=== PATIENT | male | born 1995 | race African-American/Black ===

== ENCOUNTER 2018-08-04 16:22 | Emergency (ER) | payer OTHER ==
--- NOTE | 2018-08-04 17:28 | ED Physician Chart ---
ED Chief Complaint/HPI - Patient Information Date Seen:: 08/04/18 Time Seen:: 16:50 Chief Complaint:: Chest Pain History of Present Illness:: onset x 3 days of intermittent, sharp, MS Type C/P, pt denies trauma, LOC, ALOC , AMS, H/As, neck pain, cough, dyspnea, abd. pain, A/N/V/D/C, fever, chills, or urinary s/s Allergies:: Allergies Allergy/AdvReac Type Severity Reaction Status Date / Time No Known Allergies Allergy Verified 08/04/18 17:21 Vitals:: Vital Signs - 8 hr 08/04/18 16:51 Temp 98 F HR 79 RR 18 BP 125/74 O2 Sat % 98 Historian:: Patient Review:: Nurse's Note Reviewed, Old Chart Reviewed <Julio Cesar Weldon - Last Filed: 08/04/18 19:01> - Patient Information Allergies:: Allergies Allergy/AdvReac Type Severity Reaction Status Date / Time No Known Allergies Allergy Verified 08/04/18 17:21 Vitals:: Vital Signs - 8 hr 08/04/18 08/04/18 16:51 17:28 Temp 98 F 98.3 F HR 79 70 RR 18 16 BP 125/74 120/77 O2 Sat % 98 100 <Rogers Gutierrez - Last Filed: 08/04/18 20:30> ED Review of Systems - Review of Systems General/Constitutional: No fever, No chills, No weight loss, No weakness, No diaphoresis, No edema, No loss of appetite Skin: No skin lesions, No rash, No bruising Head: No headache, No light-headedness Eyes: No loss of vision, No pain, No diplopia ENT: No earache, No nasal drainage, No sore throat, No tinnitus Neck: No neck pain, No swelling, No thyromegaly, No stiffness, No mass noted Cardio Vascular: Chest pain, No palpitations, No PND, No orthopnea, No edema Pulmonary: No SOB, No cough, No sputum, No wheezing GI: Nausea, Vomiting, Diarrhea, Pain, No melena, No hematochezia, No constipation, No hematemesis G/U: No dysuria, No frequency, No hematuria Musculoskeletal: No bone or joint pain, No back pain, No muscle pain Endocrine: No polyuria, No polydipsia Psychiatric: No prior psych history, No depression, No anxiety, No suicidal ideation, No homicidal ideation, No auditory hallucination, No visual hallucination Hematopoietic: No bruising, No lymphadenopathy Allergic/Immuno: No urticaria, No angioedema Neurological: No syncope, No focal symptoms, No weakness, No paresthesia, No headache, No seizure, No dizziness, No confusion, No vertigo <Julio Cesar Weldon - Last Filed: 08/04/18 19:01> ED Past Medical History - Past Medical History Obtainable: Yes Past Medical History: PUD/GERD Family History: HTN Social History: Non Smoker, No Alcohol, No Drug Use, Single Surgical History: None Psychiatricy History: None Medication: Reviewed <Julio Cesar Weldon Last Filed: 08/04/18 19:> Family Medical History - Family Member Mother History Unknown: Yes <Julio Cesar Weldon Last Filed: 08/04/18 19:> ED Physical Exam - Physical Examination General/Constitutional: Awake, Well-developed, well-nourished, Alert, No distress, GCS 15, Non-toxic appearing, Ambulatory Head: Atraumatic Eyes: Lids, conjuctiva normal, PERRL, EOMI Skin: Nl inspection, No rash, No skin lesions, No ecchymosis, Well hydrated, No lymphadenopathy ENMT: External ears, nose nl, TM canals nl, Nasal exam nl, Lips, teeth, gums nl , Oropharynx nl, Tonsils nl Neck: Nontender, Full ROM w/o pain, No JVD, No nuchal rigidity, No bruit, No mass, No stridor Respiratory: Nl effort/Exclusion, Clear to Auscultation, No Wheeze/Rhonchi/Rales Cardio Vascular: RRR, No murmur, gallop, rubs, NL S1 S2, Carotid/Femoral/Distal pulses equal bilaterally Other Cardio Vascular comments:: + Chest Wall Tenderness GI: No tenderness/rebounding/guarding, No organomegaly, No hernia, Normal BS's, Nondistended, No mass/bruits, No McBurney tenderness, Rectum exam nl : No CVA tenderness Extremities: No tenderness or effusion, Full ROM, normal strength in all extremities, No edema, Normal digits & nails Neuro/Psych: Alert/oriented, DTR's symmetric, Normal sensory exam, Normal motor strength, Judgement/insight normal, Mood normal, Normal gait, No focal deficits Misc: Normal back, No paraspinal tenderness <JenniferanitasaulJulio Cesar - Last Filed: 08/04/18 19:01> ED Labs/Radiology/EKG Results - Lab Results Comments:: Reviewed - Radiology Results Comments:: CXR: NAD - EKG Interpretations EKG Time:: 17:22 Rate & Rhythm: 82; NSR Comments:: T- Wave Inversions in V1, V2, and V3 <JenniferanitasaulJulio Cesar - Last Filed: 08/04/18 19:01> - Lab Results Results: Laboratory Tests 08/04/18 08/04/18 08/04/18 17:30 17:30 17:30 WBC 4.9 RBC 5.68 Hgb 14.3 Hct 44.2 MCV 77.9 L MCH 25.2 L MCHC Differential 32.4 RDW 12.2 Plt Count 312 MPV 7.3 Neutrophils % 41.2 Lymphocytes % 46.4 Monocytes % 10.5 H Eosinophils % 1.0 Basophils % 0.9 PT 11.5 INR 1.12 D-Dimer < 100 L Sodium 138 Potassium 3.9 Chloride 102 Carbon Dioxide 26.6 Anion Gap 13.3 BUN 11 Creatinine 1.1 Est GFR ( Amer) > 60.0 Est GFR (Non-Af Amer) > 60.0 BUN/Creatinine Ratio 10.0 Glucose 97 Calcium 9.9 Total Bilirubin 1.3 H AST 19 ALT 39 Alkaline Phosphatase 50 Creatine Kinase 224 H CK-MB (CK-2) 3.0 Troponin I B-Natriuretic Peptide Total Protein 7.4 Albumin 4.8 Globulin 2.6 Albumin/Globulin Ratio 1.9 H Triglycerides 59 Cholesterol 149 LDL Cholesterol Direct 99 HDL Cholesterol 47 Amylase 49 Lipase 21 08/04/18 08/04/18 17:30 17:30 WBC RBC Hgb Hct MCV MCH MCHC Differential RDW Plt Count MPV Neutrophils % Lymphocytes % Monocytes % Eosinophils % Basophils % PT INR D-Dimer Sodium Potassium Chloride Carbon Dioxide Anion Gap BUN Creatinine Est GFR ( Amer) Est GFR (Non-Af Amer) BUN/Creatinine Ratio Glucose Calcium Total Bilirubin AST ALT Alkaline Phosphatase Creatine Kinase CK-MB (CK-2) Troponin I < 0.01 L B-Natriuretic Peptide < 5.0 L Total Protein Albumin Globulin Albumin/Globulin Ratio Triglycerides Cholesterol LDL Cholesterol Direct HDL Cholesterol Amylase Lipase <Rogers Gutierrez - Last Filed: 08/04/18 20:30> ED Septic Shock - . Is Septic Shock (SBP<90, OR Lactate>4 mmol\L) present?: No - <6hrs of presentation: Vital Signs: Vital Signs - 8 hr 08/04/18 16:51 Temp 98 F HR 79 RR 18 BP 125/74 O2 Sat % 98 <Julio Cesar Weldon - Last Filed: 08/04/18 19:01> - . Is Septic Shock (SBP<90, OR Lactate>4 mmol\L) present?: No - <6hrs of presentation: Vital Signs: Vital Signs - 8 hr 08/04/18 08/04/18 16:51 17:28 Temp 98 F 98.3 F HR 79 70 RR 18 16 BP 125/74 120/77 O2 Sat % 98 100 <Rogers Gutierrez - Last Filed: 08/04/18 20:30> ED Reassessment (Disposition) - Reassessment Reassessment Condition:: Improved - Diagnosis Diagnosis:: Chest Pain; Myocardial Ischemia; Costochondritis <Julio Cesar Weldon - Last Filed: 08/04/18 19:01> - Reassessment Reassessment:: Pt stated his epigastric pain was not controlled by OTC medications and he will have a Doctor's appointment for epigastric pain in 2 days Ordered Pantoprazole 40mg PO x 1 D/c home F/u PCP or return to ER if symptoms worsen Reassessment Condition:: Improved - Patient Disposition Discharge/Transfer:: Home <Rogers Gutierrez - Last Filed: 08/04/18 20:30>
[2018-08-04 17:41] LABS: % BASOPHILS 0.9 % (0.0-2.0); % LYMPHOCYTES 46.4 % (20.0-50.0); % MONOCYTES 10.5 % (2.0-10.0); % NEUTROPHILS 41.2 % (40.0-80.0); HEMATOCRIT 44.2 % (41.0-60); HEMOGLOBIN 14.3 gm/dL (12-16); LYMPHOCYTE ABSOLUTE 2.4 Th/cmm (1.5-3.0); MEAN CELL VOLUME 77.9 fl (80-99); MEAN CORPUSCULAR HEMOGLOBIN 25.2 pg (26.0-30.0); MEAN CORPUSCULAR HGB CONC 32.4 pg (28.0-36.0); MEAN PLATELET VOLUME 7.3 fl; MONOCYTE ABSOLUTE 0.5 Th/cmm (0.3-1.0); PLATELET COUNT 312 Th/cmm (150-400); RED BLOOD COUNT 5.68 Mil/cmm (4.30-5.70); RED CELL DISTRIBUTION WIDTH 12.2 % (11.5-20.0); WHITE BLOOD COUNT 4.9 Th/cmm (4.8-10.8)
[2018-08-04 17:50] LABS: INR 1.12 (0.5-1.4); PROTHROMBIN TIME (TEST) 11.5 SECONDS (9.5-11.5)
[2018-08-04 18:00] LABS: ALB/GLOB RATIO 1.9 (1.0-1.8); ALBUMIN 4.8 gm/dL (4.2-5.5); ALKALINE PHOSPHATASE 50 U/L (34-104); AMYLASE SERUM 49 U/L (29-103); ANION GAP 13.3 (7.0-16.0); BILIRUBIN,TOTAL 1.3 mg/dL (0.3-1.0); BUN - UREA NITROGEN 11 mg/dL (7-25); CALCIUM SERUM 9.9 mg/dL (8.6-10.3); CARBON DIOXIDE 26.6 mEq/L (21.0-31.0); CHLORIDE 102 mEq/L (98-107); CHOLESTEROL 149 mg/dL (<200); CREATININE - SERUM 1.1 mg/dL (0.7-1.3); CREATININE KINASE 224 U/L (30-223); GFR AFRICAN-AMERICAN > 60.0 ml/min (>90); GFR NON AFRICAN-AMERICAN > 60.0 ml/min; GLUCOSE 97 mg/dL (70-105); HDL -HIGH DENSITY LIPOPROTEIN 47 mg/dL (23-92); LIPASE 21 U/L (11-82); POTASSIUM SERUM 3.9 mEq/L (3.5-5.1); SGOT 19 U/L (13-39); SGPT/ALT 39 U/L (7-52); SODIUM SERUM 138 mEq/L (136-145); TOTAL PROTEIN,SERUM 7.4 gm/dL (6.0-8.3); TRIGLYCERIDES 59 mg/dL (<150)
[2018-08-04 18:17] LABS: DDIMER QUANT < 100 ng/mL (100-400)
[2018-08-04 18:38] LABS: URINE SOURCE CLEAN C
[2018-08-04 18:58] LABS: URINE BILIRUBIN NEGATIVE (NEGATIVE); URINE BLOOD NEGATIVE (NEGATIVE); URINE GLUCOSE (UA) NEGATIVE (NEGATIVE); URINE KETONE 15 mg/dL (NEGATIVE); URINE LEUKOCYTE ESTERASE NEGATIVE (NEGATIVE); URINE NITRATE NEGATIVE (NEGATIVE); URINE PH 6.5 (4.6 - 8.0); URINE PROTEIN NEGATIVE (NEGATIVE); URINE UROBILINOGEN 0.2 E.U./dL (0.2 - 1.0)
[2018-08-04] MEDS ORDERED: Pantoprazole 40 mg EC Tab PO STA (19:29)
[2018-08-04] MEDS ORDERED: Pantoprazole 40 mg EC Tab PO ONE (19:32)
[2018-08-04 20:22] LABS: BENZODIAZEPINES QUAL URINE POSITIVE (NEGATIVE)
[2018-08-04 20:23] LABS: AMPHETAMINE URINE NEGATIVE (NEGATIVE); BARBITURATES URINE POSITIVE (NEGATIVE); CANNABINOID THC NEGATIVE (NEGATIVE); COCAINE METABOLITE QUAL URINE NEGATIVE (NEGATIVE); METHADONE URINE NEGATIVE (NEGATIVE); METHAMPHETAMINES QUAL URINE NEGATIVE (NEGATIVE); OPIATES (MORPHINE) QUAL. URINE NEGATIVE (NEGATIVE); PHENCYCLIDINE (PCP) URINE NEGATIVE (NEGATIVE); TRICYCLICS (TCA) QUAL. URINE NEGATIVE (NEGATIVE)
[2018-08-04 21:48] LABS: URINE CLARITY CLEAR (CLEAR); URINE COLOR YELLOW; URINE MICROSCOPIC INDICATED? YES
[2018-08-04 21:50] LABS: URINE BACTERIA FEW /hpf (NONE SEEN); URINE EPITHELIAL CELLS NONE SEEN /lpf (FEW); URINE RBC NONE SEEN /hpf (0-5); URINE WBC 0-2 /hpf (0-5)
--- NOTE | 2018-08-05 08:34 | Diagnostic Imaging Report ---
Chest x-ray single view History: Chest pain Comparison: None The heart size is normal. No focal pulmonary parenchymal processes. No hilar or mediastinal abnormalities. Impression: No acute abnormalities
== END 2018-08-04 19:46 | disposition home or self-care (01) ==
LOC: ER 16:22
DX: I25.9 Chronic ischemic heart disease, unspecified (principal); M94.0 Chondrocostal junction syndrome [Tietze]; K21.9 Gastro-esophageal reflux disease without esophagitis
CPT/HCPCS: 36415-UA; 71045-TC; 80053-TC; 80061-TC; 80307; 81001-TC; 82150-TC; 82550-TC; 82553; 83690-TC; 83880-TC; 84484-TC; 85025-TC; 85379-TC; 85610-TC; 93005; J2060; Z7502; Z7610